=== PATIENT | male | born 1945 | race Caucasian/White ===

== ENCOUNTER → 2023-11-14 | Outpatient (CLI) | payer MEDICARE, BC, OTHER | LOC: EDBD 11-12 14:50 → RAD 11-12 14:50 | DX: M25.552 Pain in left hip (principal); Z96.642 Presence of left artificial hip joint ==

== ENCOUNTER → 2024-06-18 | Outpatient (CLI) | payer MEDICARE, BC ==
[~2024-06-18] MED LIST: Iohexol 300 - 100 ML VIAL IV ONE
== END ==
LOC: RAD 10:20
DX: J92.9 Pleural plaque without asbestos (principal); J98.4 Other disorders of lung
CPT/HCPCS: Q9967